=== PATIENT | female | born 1990 | race Caucasian/White ===

== ENCOUNTER 2017-08-01 01:10 | Emergency (ER) | payer SELFPAY ==
[~2017-08-01] VITALS: Ht 154.9 cm; Wt 50.0 kg
[2017-08-01 01:11] VITALS: BP 131/92; PULSE 81; RESP 16; TEMP 98.5; O2SAT 97
[2017-08-01] MEDS ORDERED: NAPROXEN 500 MG TAB PO ONE (02:15)
[2017-08-01] MEDS ORDERED: SULFAMETHOXAZOLE-TRIMETHOPRIM DS 800-160 MG TAB PO ONE (02:15)
[2017-08-01] MEDS ORDERED: CEPHALEXIN MONOHYDRATE 500 MG CAP PO ONE (02:15)
[2017-08-01] MEDS ORDERED: CEPH-460 PO (02:16)
[2017-08-01] MEDS ORDERED: BACT800T5 PO (02:16)
[2017-08-01] MEDS ORDERED: DICL50TA3 PO (02:16)
--- NOTE | 2017-08-01 02:26 | PD ---
HPI Chief Complaint: Skin Problem Time Seen by Provider: 01:50 Travel History International Travel<30 days: No Contact w/Intl Traveler<30days: No Traveled to known affect area: No History of Present Illness HPI 26-year-old white female presents emergency department for evaluation of a left middle finger infection. She states that this been present now for last several days. She does not recall any trauma. She states the pain is severe. She denies any drainage. No fever chills. PFSH Past Medical History Medical History: Denies Significant Hx Diminished Hearing: No Tetanus Vaccination: < 5 Years Influenza Vaccination: No ?: Not LMP: 07/25/17 Past Surgical History Surgical History: No Previous Surgery Social History Alcohol Use: Yes (SOCIALLY) Tobacco Use: Yes (1PPD) Substance Use: Yes (POT) Allergies-Medications (Allergen,Severity, Reaction): Coded Allergies: No Known Drug Allergies (Verified Allergy, Unknown, 08/01/17) Reported Meds & Prescriptions Reported Meds & Active Scripts Active Diclofenac Sodium DR (Diclofenac Sodium) 50 Mg Tabdr 50 Mg PO TID Keflex (Cephalexin) 500 Mg Cap 500 Mg PO Q6H Bactrim DS (Sulfamethoxazole-Trimethoprim) 800-160 Mg Tab 1 Tab PO BID Review of Systems Except as stated in HPI: all other systems reviewed are Neg Musculoskeletal: Positive: Limited ROM, Edema, Pain, No: Myalgias, Arthralgias , Weakness Skin: Positive Rash, No Change in nails Neurologic: No: Weakness, Paresthesia Physical Exam Narrative GENERAL: This is a well-nourished, well-developed patient, in no apparent distress. The patient appears to be tweaking in the examination room. She cannot stay still. She is moving about the room. He admitted to team [facility] SKIN: No rashes, ecchymoses or lesions. Warm and dry. HEAD: Atraumatic. Normocephalic. EYES: PERRL, EOMI, no discharge or injection. No scleral icterus. EARS: Clear NOSE: Nasal turbinates appear normal. THROAT: Mucosa pink and moist. Airway patent. NECK: Trachea midline. supple, moves head freely. LUNGS: Clear to auscultation. CV: Regular in rhythm. ABDOMEN: Soft nontender. EXT: No clubbing cyanosis. Examination of the left middle finger reveals swelling of the distal phalanx with what appears to be developing paronychia. There is a area of fluctuance and pus the distal lateral aspect of the finger. The nail appears him intact. She is able to extend and flex her finger freely. Data Data Last Documented VS Vital Signs Date Time Temp Pulse Resp B/P (MAP) Pulse Ox O2 Delivery O2 Flow Rate FiO2 08/01/17 01:37 16 08/01/17 01:11 98.5 81 131/92 (105) 97 Room Air Orders Orders Sulfamet-Trimeth Ds 800-160 Mg (Bactrim (08/01/17 02:15) Cephalexin (Keflex) (08/01/17 02:15) Naproxen (Naprosyn) (08/01/17 02:15) MDM Medical Decision Making Medical Screen Exam Complete: Yes Emergency Medical Condition: Yes Medical Record Reviewed: Yes Differential Diagnosis MDM: High Differential diagnoses: Abscess, folliculitis, cellulitis, lymphangitis, abrasion, contact dermatitis, paronychia Narrative Course Patient has a paronychia to her left middle finger. I've informed the patient that incision and drainage should be performed. The patient states that if she does not get an injection of pain medication she refuses to have any procedure done. I expressed to her that we do not give narcotics for this type of procedure and that she would get a digital block. The patient once again states that she is not going to receive the digital block and continue with the procedure unless she gets pain medication. This is left middle finger paronychia The patient is given prescription for diclofenac, Bactrim DS and Keflex Patient's given a dose prior to discharge. Diagnosis Primary Impression: Paronychia of left middle finger Patient Instructions: General Instructions Additional Instructions: Rest. Elevation. keep clean and dry. Soak in Epsom salts 3 times daily. Daily wound care with soap, water and Neosporin. Keflex, Bactrim DS and diclofenac Follow-up with a primary care doctor in 2-3 days. Return to the ER for any problems. Med/Other Pt SpecificInfo: Prescription(s) given, Wound Care Scripts Diclofenac Sodium DR (Diclofenac Sodium DR) 50 Mg Tabdr 50 MG PO TID, #21 TAB 0 Refills Prov: Fanny Sullivan MD 08/01/17 Cephalexin (Keflex) 500 Mg Cap 500 MG PO Q6H for Infection, #40 CAP 0 Refills Prov: Fanny Sullivan MD 08/01/17 Sulfamethoxazole-Trimethoprim (Bactrim DS) 800-160 Mg Tab 1 TAB PO BID for Infection, #20 TAB 0 Refills Prov: Fanny Sullivan MD 08/01/17 Disposition: 01 DISCHARGE HOME Condition: Stable Eros Anne Aug 01, 2017 02:26
== END 2017-08-01 02:37 | disposition left against medical advice (07) ==
LOC: NEPD 01:10
DX: L03.012 Cellulitis of left finger (principal); F17.200 Nicotine dependence, unspecified, uncomplicated
CPT/HCPCS: 99284

== ENCOUNTER 2018-04-29 17:49 | Emergency (ER) | payer SELFPAY ==
[~2018-04-29] VITALS: Ht 162.6 cm; Wt 55.0 kg
[~2018-04-29 17:49] MED LIST: BACT800T5 PO; CEPH-460 PO; DICL50TA3 PO
[2018-04-29 17:57] VITALS: BP 107/60; PULSE 66; RESP 18; TEMP 98.7; O2SAT 95
[2018-04-29] MEDS ORDERED: IBUP1TAB7 PO (18:21)
--- NOTE | 2018-04-29 18:21 | PD ---
HPI Chief Complaint: Laceration/Skin Injury Time Seen by Provider: 18:09 Travel History International Travel<30 days: No Contact w/Intl Traveler<30days: No Traveled to known affect area: No History of Present Illness HPI 27-year-old female presents to the emergency department with complaint of laceration to her right fourth finger after cutting it on a mirror this morning when she slipped and fell on a wet floor. She denies hitting her head or loss of consciousness. Denies neck pain or back pain. Up-to-date on her tetanus vaccination. Has taken Aleve and ibuprofen for pain. 06/27. Describes as throbbing. Laceration is aggravated when she bends her finger. Bleeding controlled. Has applied a bandage. No primary care provider. Denies significant past medical history. Allergies to apples. Has no other medical complaints. No other modifying factors or associated signs and symptoms. PFSH Past Medical History Diminished Hearing: No ?: Not LMP: X 2 WEEKS AGO Social History Alcohol Use: Yes (SOCIALLY) Tobacco Use: Yes (1PPD) Substance Use: Yes (POT) Allergies-Medications (Allergen,Severity, Reaction): Coded Allergies: No Known Drug Allergies (Verified Allergy, Unknown, 08/01/17) Reported Meds & Prescriptions Reported Meds & Active Scripts Active Ibuprofen 800 Mg Tab 800 Mg PO Q6HR PRN Diclofenac Sodium DR (Diclofenac Sodium) 50 Mg Tabdr 50 Mg PO TID Keflex (Cephalexin) 500 Mg Cap 500 Mg PO Q6H Bactrim DS (Sulfamethoxazole-Trimethoprim) 800-160 Mg Tab 1 Tab PO BID Review of Systems Except as stated in HPI: all other systems reviewed are Neg Physical Exam Narrative GENERAL: Well-nourished, well-developed feet patient, in no acute distress SKIN: Warm and dry. Approximately 1-1/2 cm laceration to the dorsal aspect of the right fourth finger in between the MCP and the PIP joints; bleeding controlled; finger with full flexion and extension; good opposition; finger pink and warm and was sensory intact. HEAD: Atraumatic. Normocephalic. EYES: Pupils equal and round. No scleral icterus. No injection or drainage. ENT: Mucosa pink and moist. Airway patent. NECK: Trachea midline. CARDIOVASCULAR: Regular rate. RESPIRATORY: No accessory muscle use. GASTROINTESTINAL: Flat. MUSCULOSKELETAL: No obvious deformities. No clubbing. No cyanosis. No edema. NEUROLOGICAL: Awake and alert. Oriented 3. No obvious cranial nerve deficits. Motor grossly within normal limits. Normal speech. PSYCHIATRIC: Appropriate mood and affect; insight and judgment normal. Data Data Last Documented VS Vital Signs Date Time Temp Pulse Resp B/P (MAP) Pulse Ox O2 Delivery O2 Flow Rate FiO2 04/29/18 17:57 98.7 66 18 107/60 (76) 95 Orders Orders Ed Discharge Order (04/29/18 18:21) MDM Medical Decision Making Medical Screen Exam Complete: Yes Emergency Medical Condition: Yes Medical Record Reviewed: Yes Differential Diagnosis Laceration, cut, abrasion Narrative Course 27-year-old female with right fourth finger laceration. The patient does not want sutures. She is asking for an alternative closure of the laceration. Laceration cleaned with normal saline and Steri-Strips applied. Ibuprofen prescribed for home. Instructed patient to follow up with primary care provider. Patient verbalizes understanding and agreement with treatment plan. Patient is medically cleared and stable for discharge. Discussed reasons to return to the emergency department. Patient agrees with treatment plan. The patients vital signs are stable and the patient is stable for outpatient follow- up and treatment. Patient discharged home, stable and in no acute distress. Procedures Procedure Narrative LACERATION LOCATION: Dorsal aspect of right fourth finger LENGTH: 1-1/2 cm Steri-Strips were used to close the laceration REPAIR: The area of the laceration was cleaned with normal saline. The wound was copiously irrigated and explored without evidence of foreign body, tendon injury or neurovascular injury. The wound was closed using Steri-Strips. This was a single layer repair. A sterile dressing was applied. The patient was advised to keep the dressing clean and dry. Patient tolerated the procedure well. Diagnosis Primary Impression: Laceration of finger of right hand Qualified Codes: S61.214A - Laceration without foreign body of right ring finger without damage to nail, initial encounter Referrals: [facility] Primary Care Physician Patient Instructions: Finger Laceration (ED), General Instructions, Steristrips (ED) Additional Instructions: Keep area clean and dry Refer to your discharge instructions for Steri-Strip care Keep Steri-Strips dry Keep Steri-Strips in place for at least 7 days Follow-up with primary care provider Return to the emergency department immediately with worsening of symptoms Med/Other Pt SpecificInfo: Prescription(s) given Scripts Ibuprofen (Ibuprofen) 800 Mg Tab 800 MG PO Q6HR Y for PAIN, #20 TAB 0 Refills Prov: Teri Cooper 04/29/18 Disposition: 01 DISCHARGE HOME Condition: Stable Teri Cooper Apr 29, 2018 18:21
== END 2018-04-29 18:41 | disposition home or self-care (01) ==
LOC: NEPK 17:49
DX: S61.214A Laceration without foreign body of right ring finger without damage to nail, initial encounter (principal); F17.200 Nicotine dependence, unspecified, uncomplicated; W01.118A Fall on same level from slipping, tripping and stumbling with subsequent striking against other sharp object, initial encounter
CPT/HCPCS: 12001